=== PATIENT | male | born 1995 | race African-American/Black ===

== ENCOUNTER 2021-08-03 10:16 | Outpatient (REF) | payer SELFPAY ==
[2021-08-03 14:30] LABS: Binax Internal Control QC Valid; Binax Now Covid-19 Ag Positive (Negative)
== END 2021-08-03 10:17 | disposition home or self-care (01) ==
LOC: HO.HMGCLDS 10:16
PROVIDERS: Visit Provider Internal Medicine
DX: Z20.822 Contact with and (suspected) exposure to COVID-19 (principal)
CPT/HCPCS: 36415; C9803

== ENCOUNTER 2021-08-29 08:20 | Outpatient (REF) | payer OTHER, SELFPAY ==
[2021-08-29 11:39] LABS: Hematocrit 48.1 % (42.0-52.0); Hemoglobin 15.4 g/dl (14.0-18.0); Mean Corpuscular Hemoglobin 26.8 pg (27.0-33.0); Mean Corpuscular Volume 83.7 fL (80.0-98.0); Mean Platelet Volume 10.2 fL (9.4-12.4); Platelet Count 220 X10*3/uL (160-400); Red Blood Count 5.75 X10*6/uL (4.60-5.80); Red Cell Distribution Width 13.1 % (11.0-16.0); White Blood Count 4.7 X10*3/uL (4.8-10.8)
[2021-08-29 11:58] LABS: Alanine Aminotransferase 18 U/L (0-40); Albumin Level 4.3 g/dL (3.5-5.0); Alkaline Phosphatase 85 U/L (39-117); Anion Gap 10 (12-20); Aspartate Amino Transferase 20 U/L (5-37); Bilirubin Total 1.3 mg/dL (0.0-1.0); Blood Urea Nitrogen 14 mg/dL (9-16); Calcium 9.8 mg/dL (8.4-10.2); Carbon Dioxide 29 mmol/L (22-29); Chloride 104 mmol/L (96-108); Cholesterol 171 mg/dL; Estimated Glomerular Filt Rate > 60; Glucose Fasting 93 mg/dL (60-99); HDL Cholesterol 40 mg/dL; LDL Cholesterol Calculated 109 mg/dl; Potassium 4.5 mmol/L (3.3-5.1); Sodium 138 mmol/L (135-145); Total Protein 7.6 g/dL (6.5-8.0); Triglycerides 113 mg/dL
== END 2021-08-29 08:21 | disposition home or self-care (01) ==
LOC: HO.HMGCLDS 08:20
PROVIDERS: PCP Internal Medicine; Visit Provider Internal Medicine
DX: Z00.00 Encounter for general adult medical examination without abnormal findings (principal)
CPT/HCPCS: 36415; 80053; 80061; 85027

== ENCOUNTER → 2021-12-01 08:38 | Outpatient (REF) | payer OTHER, SELFPAY ==
--- NOTE | 2021-12-01 08:42 | CA_ITS ---
Transthoracic Echocardiogram Patient (Last, First, Middle): Gustavo Brown, Gender: Male Date of : 1995 Age: 26 Procedure Date: 12/01/2021 Procedure Type: Transthoracic Echocardiogram Location: OP Height: 172.72 cm Weight: 81.65 kg BSA: 1.95 m2 Heart Rate: bpm BP: 125 / 81 mmHg Human Resources Consultant: VH/TO Referring MD: Felicia Rosado MD Regional Sales Consultant: Aki Keane MD Symptoms: R01.1 - Cardiac murmur, unspecified Study Quality: Good ECG Rhythm: Sinus Conclusions: - 1. Low normal LV systolic function with normal diastolic function 2. Normal cardiac valvular Dopplers 3. Normal RV systolic pressure 4. No pericardial effusion Findings Left Ventricle Normal left ventricular cavity size. There is normal left ventricular wall thickness. The left ventricular systolic function is low normal. The visually estimated ejection fraction is between 50-55%. Spectral Doppler is indicative of a normal filling pattern. Right Ventricle Normal right ventricular cavity size and systolic function. Atria Both atria are normal in size. There is no evidence of interatrial shunt. Aortic Valve Normal aortic valve structure and function. There is no aortic valve stenosis. There is no aortic valve regurgitation. Mitral Valve Normal mitral valve structure and function. There is trace mitral valve regurgitation. There is no mitral valve stenosis. Pulmonic Valve The pulmonic valve is likely normal. Tricuspid Valve Normal tricuspid valve structure. There is trace tricuspid valve regurgitation. The right ventricular systolic pressure is normal. The right ventricular systolic pressure is 12 mmHg. Normal right atrial pressure. There is no evidence of pulmonary hypertension. Great Vessels All visible segments of the aorta are normal in size. The pulmonary artery was not well visualized. Venous The inferior vena cava is normal in size and collapses greater than 50% with inspiration. Pericardium/Pleural There is no evidence of pericardial effusion. Prior Study Comparison No prior study available for comparison. Measurements 2D Linear Measurements IVSd: 0.89 0.6-0.9/0.6-1.0 cm LVIDd: 4.98 3.9-5.3/4.2-5.9 cm LVIDd Index: 2.55 2.4-3.2/2.2-3.1 cm/m2 LVIDs: 3.36 2.0-3.6 cm LVPWd: 0.87 0.7-1.1 cm LA Diam: 2.90 2.7-3.8/3.0-4.0 cm LAIDs Index: 1.49 1.5-2.3 cm/m2 LV Mass: 189.84 67-162/88-224 g LV Mass Index: 97.35 43-95/49-115 g/m2 LVOT Diam: 2.10 3.0+(-)1.3 cm 2D Systolic Function EF 4C: 50.70 >55% EF 2C: 51.60 >55% EF BiP: 52.40 >55% Mitral Valve MV Pk E: 0.70 MV PK A: 0.48 MV Decel Time: 217.00 E/A: 1.40 E'Lateral: 14.00 E'Medial: 8.16 E/E' Med: 8.50 E/E' Lat: 5.00 PHT: 64.00 MVA PHT: 3.44 Decel [place]: 4.00 Aortic Valve AoV Pk Luis: 1.22 AoV Mn Luis: 0.88 AoV VTI: 0.27 AoV Pk Grad: 6.00 Aov Mn Grad: 3.00 FINA Cont.VTI: 2.50 LVOT LVOT Pk Luis: 1.07 LVOT Mn Luis: 0.69 LVOT VTI: 0.19 LVOT Pk Grad: 5.00 LVOT Mn Grad: 2.00 LVOT Diam: 2.10 LVOT Area: 3.46 Diastolic Function MV Pk E: 0.70 MV Pk A: 0.48 E/A: 1.40 E'Medial: 8.16 E/E' Med: 8.50 E' Laterial: 14.00 E/E' Lat: 5.00 Right Ventricle TAPSE (mm): 20.40 TVS' Luis: 11.50 Tricuspid Valve TR Pk Luis: 1.49 TR Pk Grad: 9.00 RA Press: 3.00 RVSP: 12.00 Great Vessels Aorta Sinus of Valsalva: 3.24 2.0-3.[address] [place]: 2.47 1.7-3.4 cm Ao Asc: 2.70 2.1-3.4 cm Ao Arch: 2.50 Updated in Other Vendor System with Status of Final Aki Keane MD electronically signed on 12/01/2021 3:01:47 PM with status of Final
== END ==
LOC: HO.CARD 08:38
PROVIDERS: PCP Internal Medicine; Visit Provider Internal Medicine
DX: R01.1 Cardiac murmur, unspecified (principal)
CPT/HCPCS: 93306

== ENCOUNTER → 2022-11-06 11:00 | Outpatient (BNVA) | payer OTHER, SELFPAY | PROVIDERS: PCP Internal Medicine; Visit Provider Nurse Practitioner Family | DX: F41.8 Other specified anxiety disorders (principal) | CPT/HCPCS: 99202 ==

== ENCOUNTER 2023-03-22 12:05 | Outpatient (AMB) | payer OTHER, SELFPAY ==
[2023-03-22 12:20] VITALS: BP 130/90; PULSE 54; TEMP 36.3; O2SAT 99; BMI 27.6
--- NOTE | 2023-03-22 12:20 | AM.OFFWIN_ITS ---
Intake Vital Signs 03/22/23 12:20 Height 5 ft 8 in Weight 181 lb 6 oz BMI 27.6 BP 130/90 H Blood Pressure Location Rt brachial Position Sitting Pulse 54 Pulse Source Pulse Oximeter Temp 97.4 F Temp Source Temporal Artery Scan Pulse Oximetry (%) 99 Oxygen Delivery Method Room Air Intake Visit Reasons: EP STD Testing Intake Note: Pt is here requesting to get STD tested. Patient Tobacco Use Status: Never used Tobacco Allergies No Known Allergies Allergy (Verified 03/22/23 12:37) Medication List - Last Reconciled 03/22/23 by Ed Guerra MD No Known Home Meds Do you need a note to return to daycare/school/sports/work: Yes HPI EP STD Testing HPI Details 27-year-old male presents to the office requesting to be screen for sexually transmitted disease. He had sex outside his marriage. Sex with women. Heterosexual. Did not use protection. No symptoms. 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, MARINE Housing: House Patient Tobacco Use Status: Never used Tobacco e-Cigarette/Vaping Use: Never Used service: Yes Current occupational status: employed Physical Exam Vital Signs: Last Vital Signs Temp 97.4 F 03/22/23 12:20 Pulse 54 03/22/23 12:20 BP 130/90 H 03/22/23 12:20 Pulse Ox 99 03/22/23 12:20 Oxygen Delivery Method Room Air 03/22/23 12:20 BMI result Body Mass Index 27.6 Const General: cooperative, healthy appearing and comfortable Assessment & Plan Assessment & Plan (1) Routine screening for STI (sexually transmitted infection): Code(s): Z11.3 - Encounter for screening for infections with a predominantly sexual mode of transmission Plan: Urine for chlamydia and gonorrhea tested. Blood work for HIV and syphilis ordered. Will call with results. No medications started today. Orders: Orders HIV Ab/Ag Today Z11.3 - Encounter for screening for infections with a predominantly sexual mode of transmission Syphilis Screen Today Z11.3 - Encounter for screening for infections with a predominantly sexual mode of transmission CT NG by PCR Today Z11.3 - Encounter for screening for infections with a predominantly sexual mode of transmission Coding Level of Care Code Est Pt Level 3 (76557) Diagnoses Routine screening for STI (sexually transmitted infection) Z11.3
== END 2023-03-22 13:01 | disposition home or self-care (01) ==
PROVIDERS: PCP Internal Medicine; Visit Provider Internal Medicine
DX: Z11.3 Encounter for screening for infections with a predominantly sexual mode of transmission (principal)
CPT/HCPCS: 99213

== ENCOUNTER 2023-03-22 12:40 | Outpatient (REF) | payer OTHER, SELFPAY ==
[2023-03-23 04:08] LABS: Syphilis Screen Nonreactive (Nonreactive)
[2023-03-23 04:16] LABS: HIV AB/AG Nonreactive (Nonreactive); HIV Num 1 0.06 S/CO (0.00-0.99)
[2023-03-23 04:48] LABS: CT PCR NOT DETECTED (Not Detect.); NG PCR NOT DETECTED (Not Detect.)
== END 2023-03-22 12:41 | disposition home or self-care (01) ==
LOC: HO.HMGCLDS 12:40
PROVIDERS: PCP Internal Medicine; Visit Provider Internal Medicine
DX: Z11.4 Encounter for screening for human immunodeficiency virus [HIV] (principal); Z20.2 Contact with and (suspected) exposure to infections with a predominantly sexual mode of transmission
CPT/HCPCS: 0353U; 36415; 86780; 87389

== ENCOUNTER 2023-07-17 09:07 | Outpatient (AMB) | payer OTHER, SELFPAY ==
[2023-07-17 09:57] VITALS: BP 124/70; PULSE 73; TEMP 36.1; O2SAT 98; BMI 26.9
--- NOTE | 2023-07-17 09:57 | MHC.OFFWIV ---
Intake Vital Signs 07/17/23 09:57 Height 5 ft 8 in Weight 177 lb BMI 26.9 BP 124/70 Blood Pressure Location Lt brachial Position Sitting Pulse 73 Pulse Source Pulse Oximeter Temp 97.0 F Temp Source Temporal Artery Scan Pulse Oximetry (%) 98 Oxygen Delivery Method Room Air Intake Visit Reasons: EST/HIV/STD tesing (lobby) Intake Note: pt is here today for HIV,STD testing for work Patient Tobacco Use Status: Never used Tobacco Allergies No Known Allergies Allergy (Verified 07/17/23 09:58) Do you need a note to return to daycare/school/sports/work: Yes HPI EST/HIV/STD tesing (lobby) HPI Details This is a 27 year old male patient who presents today requesting HIV testing. He reports he needs this for work. He denies any need for any additional STI testing. Denies any known exposure to any STIs. 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, MARINE Housing: House Patient Tobacco Use Status: Never used Tobacco e-Cigarette/Vaping Use: Never Used service: Yes Current occupational status: employed Review of Systems Const All systems reviewed & are unremarkable except as noted in HPI and below Physical Exam Vital Signs: Last Vital Signs Temp 97.0 F 07/17/23 09:57 Pulse 73 07/17/23 09:57 BP 124/70 07/17/23 09:57 Pulse Ox 98 07/17/23 09:57 Oxygen Delivery Method Room Air 07/17/23 09:57 BMI result Body Mass Index 26.9 Const General: cooperative, healthy appearing, comfortable and no acute distress Nutritional Appearance: average body habitus and well nourished Limitations: no limitations Resp Effort & Inspection: normal respiratory effort Skin General skin exam: no rashes or lesions noted Psych Appearance: grossly normal and well kempt Mental Status: mental status grossly normal Assessment & Plan Assessment & Plan (1) Routine screening for STI (sexually transmitted infection): Code(s): Z11.3 - Encounter for screening for infections with a predominantly sexual mode of transmission Plan: HIV ab/ag serology ordered for this patient per his request. He declines any additional testing at this time. He requests note stating he had test done and results are pending. I have written this for him and he will be notified of results once these are available. Orders: Orders HIV Ab/Ag Today Z11.3 - Encounter for screening for infections with a predominantly sexual mode of transmission Coding Level of Care Code Est Pt Level 3 (79201) Diagnoses Routine screening for STI (sexually transmitted infection) Z11.3
== END 2023-07-17 10:42 | disposition home or self-care (01) ==
PROVIDERS: PCP Internal Medicine; Visit Provider Nurse Practitioner Family
DX: Z11.3 Encounter for screening for infections with a predominantly sexual mode of transmission (principal)
CPT/HCPCS: 99213

== ENCOUNTER 2023-07-17 10:42 | Outpatient (REF) | payer OTHER, SELFPAY ==
[2023-07-17 14:01] LABS: HIV AB/AG Nonreactive (Nonreactive); HIV Num 1 0.06 S/CO (0.00-0.99)
== END 2023-07-17 10:43 | disposition home or self-care (01) ==
LOC: HO.HMGCLDS 10:42
PROVIDERS: PCP Internal Medicine; Visit Provider Nurse Practitioner Family
DX: Z11.4 Encounter for screening for human immunodeficiency virus [HIV] (principal)
CPT/HCPCS: 36415; 87389

== ENCOUNTER 2023-07-29 14:24 | Emergency (ER) | payer OTHER, SELFPAY ==
[2023-07-29 14:43] VITALS: BP 145/74; PULSE 76; RESP 16; TEMP 36.6; O2SAT 96; BMI 28.0
--- NOTE | 2023-07-29 14:43 | ED_ITS ---
HPI - Extremity Injury (Upper) General Chief Complaint: Wound/Laceration Stated Complaint: Finger lac Time Seen by Provider: 07/29/23 17:42 Source: patient Mode of arrival: ambulatory Limitations: no limitations History of Present Illness HPI narrative: Patient is a 27 year old assigned male at with no reported medical history presenting to the emergency department today with a left ring finger laceration. Patient states that he was cutting some potatoes when the knife slipped and caught his left ring finger. Patient states that he did remove some excess skin with nail clippers before coming to the department. Patient denies any dizziness, lightheadedness, abdominal pain, nausea, vomiting, fever, chills, blurry vision, double vision, loss of vision, chest pain, difficulty breathing, shortness of breath, back pain, night sweats, pain with urination, increased urinary frequency, increased urinary urgency, blood in his urine or stool, syncope or a near syncopal episode, bowel incontinence, bladder incontinence, bowel retention, bladder retention, or any other complaints at this time. MD complaint: injury to: left and finger (ring) Onset (ago): minute(s) Other injuries: none Place: home Severity: mild Relieving factors: none Exacerbating factors: none Context: laceration Associated symptoms: denies other symptoms Treatments prior to arrival: bandage Related Data Previous Rx's Medication Instructions Recorded cefuroxime axetil 250 mg tablet 250 mg PO BID 7 days #14 tabs 07/29/23 Allergies Allergy/AdvReac Type Severity Reaction Status Date / Time No Known Allergies Allergy Verified 07/29/23 14:43 Review of Systems 2 Constitutional: Constitutional: Reports no additional constitutional complaints, Denies chills, Denies fever(s) and Denies night sweats Eyes: Eyes: Reports no additional eye complaints, Denies blurry vision, Denies change in vision, Denies diplopia, Denies eye discharge, Denies loss of vision and Denies eye pain ENT: Denies dizziness Cardiovascular: Cardiovascular: Reports no additional cardiovascular complaints, Denies chest pain, Denies lightheadedness, Denies Loss of Consciousness and Denies dyspnea Respiratory: Respiratory: Reports no additional respiratory complaints and Denies dyspnea Gastrointestinal: Gastrointestinal: Reports no additional gastrointestinal complaints, Denies abdominal pain, Denies melena, Denies hematochezia, Denies change in bowel habits and Denies change in stool character Genitourinary: Genitourinary: Reports no additional male genitourinary complaints, Denies hematuria, Denies oliguria, Denies difficulty urinating, Denies dysuria, Denies urinary frequency, Denies urinary hesitancy, Denies urinary incontinence and Denies urinary urgency Musculoskeletal: Musculoskeletal: Reports no additional musculoskeletal complaints, Denies numbness and Denies tingling Comments: laceration to left ring finger Neurologic: Denies dizziness, Denies loss of vision, Denies numbness and Denies tingling Psychiatric: Psychiatric: Reports no additional psychiatric complaints Endocrine: Endocrine: Reports no additional endocrine complaints Hematologic/Lymphatic: Hematologic/Lymphatic: Reports no additional hematologic/lymphatic complaints Allergic/Immunologic: Allergic/Immunologic: Reports no additional allergic/immunologic complaints PMFSH Past Medical History Attestation statement: The following information was validated with the patient. 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, MARINE Housing: House Patient Tobacco Use Status: Never used Tobacco e-Cigarette/Vaping Use: Never Used Advance Directives: No Advance Directives Information Provided: No service: Yes Current occupational status: employed Physical Exam 2 Vital Signs: Vital Signs: Last Vital Signs Temp 98.7 F 07/29/23 17:59 Pulse 78 07/29/23 17:59 Resp 16 07/29/23 17:59 BP 123/52 L 07/29/23 17:59 Pulse Ox 97 07/29/23 17:59 O2 Del Method Room Air 07/29/23 17:59 BMI result Body Mass Index 28.0 Const: General: cooperative, no acute distress, alert and awake Nutritional Appearance: well nourished Orientation/consciousness: patient oriented x3 Limitations: no limitations HEENT: Head: Yes normal to inspection and Yes atraumatic Ears: hearing grossly normal bilaterally and external ears normal General nose exam: Normal external nose present, no nasal discharge noted and no epistaxis Face and sinus: Yes normal facial exam, No abrasion and No laceration Mouth: Normal oral and palatal mucosa present, no drooling and no muffled voice Eyes: General: appearance normal, both eyes and all related structures P eriorbital: periorbital findings normal Eyelids: Yes eyelids normal C onjunctivae: conjunctivae normal Pupils: Equal, round and reactive pupils present EOM: EOMs intact bilaterally Neck: Neck: Yes normal visual inspection, Yes full ROM and Yes no lymphadenopathy Chest: Chest palpation & inspection: normal inspection of the chest Resp: Effort & Inspection: normal respiratory effort and able to speak in complete sentences GI: Inspection: Yes normal to inspection Neuro: General: patient oriented x3 and moves all extremities Cranial nerves: Yes Equal, round and reactive pupils present Cognition (Neuro): n ormal cognition Motor exam (neuro): 5/5 motor strength present throughout Sensory Exam: Normal double simultaneous stimulation for sensation C oordination: [id number] test normal Extrem: General: Yes full ROM and Yes capillary refill normal Hand/finger images: 1. 1.5cm flap type laceration to tip Psych: Appearance: grossly normal Mental Status: mental status grossly normal Affect: normal affect Attitude: cooperative Thought process: N ormal thought process present Thought content: Normal thought content present Insight: Good insight present (Psych) Course Course Course Narrative: This is a rapid medical exam. Deferred additional HPI, ROS, PE to primary provider. 27 yo male with no known medical history, right hand dominant here with laceration to left 4th finger from a knife at home. FROM, lac to distal tip which will require closure with sutures. Tetanus UTD Medications Administered Discontinued Medications Generic Name Dose Route Start Last Admin Trade Name Freq PRN Reason Stop Dose Admin Lidocaine HCl 5 ml 07/29/23 17:57 07/29/23 18:11 Lidocaine Hcl 1 % Mpf 5 Ml Vial SUBCUT 07/29/23 17:58 5 ml ONCE ONE Administration Medical Decision Making Medical Decision Making MDM Narrative: Patient is a 27 year old assigned male at with no reported medical history presenting to the emergency department today with a left ring finger laceration. Patient's physical exam was as noted in the physical exam portion of this note. I explained my physical exam findings to the patient. I answered all questions asked by the patient. Patient's laceration was repaired, without incident. Patient was brought up to date on his tetanus status. Given the nature of the patient's injury, will cover with a prophylactic antibiotic. I stressed the importance of the patient performing daily wound checks and dressing changes. I stressed the importance of the patient NOT soaking the affected area. I stressed the importance of the patient having his sutures (2) removed in 7-10 days. I stressed the importance of the patient taking his medication as prescribed. I stressed the importance of the patient following up with his primary care provider. I stressed the importance of the patient returning to the emergency department immediately if his symptoms were to worsen or if he were to develop any numbness, tingling, dizziness, shortness of breath, difficulty breathing, chest pain, blurry vision, loss of vision, nausea, vomiting, abdominal pain, fever, chills, back pain, or any other complaints. Patient verbalized agreement and understanding with this treatment plan and discharge. Differential Diagnosis Differential Diagnoses: The differential diagnosis associated with the presentation includes Left ring finger laceration Admission/Observation Consideration of admission/observation: Escalation of care including admission/observation considered Patient would have been admitted to the hospital had clinical presentation warranted hospital admission. Prescription Management I considered prescription management with: Antibiotic (patient prescribed an antibiotic due to nature of the patient's injury) Procedures Laceration Laceration 1: Site: other (ring finger) Side (If applicable): left Size (cm): 1.5 Description: flap Depth: simple, single layer Local Anesthetic: lidocaine 1% Amount of anesthesia used (mL): 10 Pre-repair: wound explored, irrigated extensively and deep structures intact Skin layer closed with: other (prolene) Size (cm): 5-0 Number of sutures: 2 Technique: simple, interrupted Discharge Plan Discharge Clinical Impression: Laceration Patient Disposition: Home, Self-Care Instructions: Care For Your Stitches (DC), Laceration (DC) Additional Instructions: Have your sutures removed in 7-10 days. Do NOT soak the affected area. Perform daily wound checks and dressing changes. Follow up with your primary care provider. Return to the emergency department immediately if your symptoms worsen or if you develop any dizziness, shortness of breath, difficulty breathing, chest pain, blurry vision, loss of vision, nausea, vomiting, abdominal pain, fever, chills, back pain, or any other complaints. Prescriptions: New cefuroxime axetil 250 mg tablet 250 mg PO BID 7 Days Qty: 14 0RF Referrals: Felicia Rosado MD [Primary Care Provider] - Print Language: Italian
[2023-07-29 17:59] VITALS: BP 123/52; PULSE 78; RESP 16; TEMP 37.1; O2SAT 97
[2023-07-29] MEDS: Lidocaine HCl 1 % MPF 5 ML VIAL SUBCUT (18:11)
[2023-07-29] MEDS: Diphth,Pertus(ACell),Tet Adult 0.5 ML SYRINGE IM (20:08)
[2023-07-29 20:28] VITALS: BP 124/74; PULSE 72; RESP 19; O2SAT 100
--- NOTE | 2023-07-29 20:30 | PC.NURSE ---
Pt ca&ox4, no signs of distress. Pt medicated per mar and tolerated well. Pts significant other at bedside. Plan of care ongoing.
== END 2023-07-29 20:31 | disposition home or self-care (01) ==
PROVIDERS: Emergency Provider Internal Medicine; PCP Internal Medicine
DX: S61.215A Laceration without foreign body of left ring finger without damage to nail, initial encounter (principal); W26.0XXA Contact with knife, initial encounter; Y93.G1 Activity, food preparation and clean up; Y92.9 Unspecified place or not applicable; Y99.9 Unspecified external cause status; Z23 Encounter for immunization
CPT/HCPCS: 12001; 90471; 90715; 99284

== ENCOUNTER 2023-08-07 08:48 | Outpatient (AMB) | payer OTHER, SELFPAY ==
[2023-08-07 09:24] VITALS: BP 112/70; PULSE 73; TEMP 36.2; O2SAT 96; BMI 27.2
--- NOTE | 2023-08-07 09:24 | AM.OFFWIN_ITS ---
Intake Vital Signs 08/07/23 09:24 Height 5 ft 8 in Weight 179 lb BMI 27.2 BP 112/70 Blood Pressure Location Lt brachial Position Sitting Pulse 73 Pulse Source Pulse Oximeter Temp 97.2 F Temp Source Temporal Artery Scan Pulse Oximetry (%) 96 Oxygen Delivery Method Room Air Intake Visit Reasons: EST/stitch removal left ring finger(lobby) Intake Note: pt is here today for stitch removal lft finger Patient Tobacco Use Status: Never used Tobacco Allergies No Known Allergies Allergy (Verified 08/07/23 09:25) Do you need a note to return to daycare/school/sports/work: No HPI HPI Comments History of Present Illness Details Patient presents with for L 4th digit suture removal Seen at [facility] 10 days ago for suture placement Cut himself while cutting potatoes Some sensitivity No pain scale given No bleeding TDAP UTD PFSH Medical History Heart murmur Annual physical exam Family History Mother HTN (hypertension) DM type 2 (diabetes mellitus, type 2) CAD (coronary artery disease) Social History Household Members Other:: , 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 Speaking full sentences. Skin: Warm dry throughout L 4th digit fingertip had [address]. No wound dehiscence, edema or erythema/discharge. + tenderness to palpation of fingertip Eye: EOMI MSK: Full ROM extremities. Neurology: A/O. No aphasia or facial droop. Gait without abnormality Psych: Good mood and affect Assessment & Plan Assessment & Plan (1) Visit for suture removal: Code(s): Z48.02 - Encounter for removal of sutures Plan: Patient seen and evaluated. Verbal consent obtained. L 4th digit on hand had 2 sutures removed with scissors and tweezers without complication Gave verbal care instructions Patient gave verbal understanding and had no additional questions or concerns at time of discharge All questions answered Coding Level of Care Code Est Pt Level 2 (78041) Diagnoses Visit for suture removal Z48.02
== END 2023-08-07 10:35 | disposition home or self-care (01) ==
PROVIDERS: PCP Internal Medicine; Visit Provider Physician Assistant
DX: Z48.02 Encounter for removal of sutures (principal)
CPT/HCPCS: 15853; 99212

== ENCOUNTER 2023-12-02 15:34 | Outpatient (AMB) | payer OTHER, SELFPAY ==
--- NOTE | 2023-12-02 15:39 | A.OFFVIS_ITS ---
Intake Visit Reasons: Vasectomy Consult Intake Note: Patient is present for vasectomy consult Urology Medications: none Blood Thinner: none Children #0 biological Expected Children#0 Concession Attendant Required: No Accompanied by: Self / Same As Patient Allergies No Known Allergies Allergy (Verified 12/02/23 19:14) Medication List - Last Reconciled 12/02/23 by GUILLERMO Shepard No Known Home Meds HPI Comments Details: Gustavo is a pleasant 28-year-old male patient of Dr. Rosado. He presents to the office today for for vasectomy evaluation. Of note, patient was seen over 1 year ago at which time vasectomy was discussed with plans to schedule for vasectomy however patient discusses he has not been able to as he has been busy with work. He discusses having recently returned home and is looking to have procedure. He otherwise offers no other issues or concerns at this time. Vasectomy evaluation The patient presents for vasectomy consultation.? He is currently He has fathered -?no biological children he has three step children The youngest child is - 11 years old? His partner is aware and permissive for a vasectomy. Current form of control is hormones. Current employment is active duty [employer]. The vasectomy may be complicated due to a history of no complicating issues. Patient education has been provided via [employer] video, via printed information, risks of failure, recovery time, bruising and potential pain syndrome have been stressed Discussion today focused on the presence of vasectomy and the risks, benefits and alternatives that are available. Vasectomy as intended as a permanent form of control. Printed information and literature was provided to the patient. Overall there is a one in 2500 failure rate. This can occur at any time after vasectomy. Risks were discussed highlighting hematoma, spermatocele, epididymal congestion, development of sperm antibodies, and development of chronic pain estimated between 1-5%. The procedure was reviewed in detail. Anatomical diagrams of the male genitalia were used to explain the location of the vas deferens. The vas deferens will be transected, the proximal end will be cauterized, a metal clip would be applied to separate the 2 vas deferens ends. It was explained the procedure will be done in the office and takes approximately 10-15 minutes. Less common problems that arise with vasectomy include hematoma, bleeding, allergic reaction to anesthetic, epididymal infection, epididymal congestion, scrotal discomfort, spermatic leak, spermatic granuloma and the possibility of antisperm antibodies. He understands these risks and wishes to proceed. Consent was signed at the office today. He also understands that it takes 12 weeks for sperm to fully clear the system. He will need to provide a semen sample at 12 weeks and if this is not clear a 2nd sample at 16 weeks. Medical clearance to stop using protection will only be provided if he satisfies published criteria for sperm clearance. 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, MARINE Housing: House Patient Tobacco Use Status: Never used Tobacco e-Cigarette/Vaping Use: Never Used service: Yes Current occupational status: employed Review of Systems Const All systems reviewed & are unremarkable except as noted in HPI and below Reports no additional complaints Eyes Reports no additional complaints ENT Reports no additional complaints Card Reports no additional complaints Resp Reports no additional complaints GI Reports no additional complaints Reports as per HPI Musc Reports no additional complaints Neuro Reports no additional complaints Psych Reports no additional complaints Endo Reports no additional complaints Raj/Lymph Reports no additional complaints Aller/Immun Reports no additional complaints Physical Exam Const General: cooperative, healthy appearing, comfortable, no acute distress, well developed, alert and awake Nutritional Appearance: average body habitus Orientation/consciousness: patient oriented x3 Limitations: no limitations HEENT Head: Yes normal to inspection, Yes normocephalic and Yes atraumatic Ears: hearing grossly normal bilaterally Eyes General: appearance normal, both eyes and all related structures Neck Neck: Yes normal visual inspection and Yes trachea midline Chest Chest palpation & inspection: normal inspection of the chest Resp Effort & Inspection: normal respiratory effort and able to speak in complete sentences Cardio Rate: regular rate GI Inspection: Yes normal to inspection General: Yes no CVA tenderness Penis: normal penis Meatus: meatus normal Scrotum: scrotum normal Testes: Testes normal Back/Spine/Pelvis Back: no CVA tenderness Skin General skin exam: no rashes or lesions noted Neuro General: patient oriented x3 Extrem General: Yes normal to inspection Psych Appearance: grossly normal and well kempt Mental Status: mental status grossly normal Speech and movement: Normal speech and movement present and Clear speech present Affect: normal affect Attitude: cooperative Thought process: Normal thought process present Thought content: Normal thought content present Insight: Good insight present (Psych) Judgement: Good judgement present (Psych) Results AMB Urinalysis, Automated UA Leukoctes 0 Tiff/uL Last Edit by [employer] on 12/02/23 15:54 UA Nitrite Negative Last Edit by [employer] on 12/02/23 15:54 UA Urobilinogen 0.2 mg/dL Last Edit by [employer] on 12/02/23 15:54 UA Protein 0 mg/dL Last Edit by [employer] on 12/02/23 15:54 UA pH 6.5 Last Edit by [employer] on 12/02/23 15:54 UA Blood 0 Jerel/uL Last Edit by [employer] on 12/02/23 15:54 UA Specific [place] 1.020 Last Edit by [employer] on 12/02/23 15:54 UA Ketone Negative Last Edit by [employer] on 12/02/23 15:54 UA Bilirubin 0 mg/dL Last Edit by [employer] on 12/02/23 15:54 UA Glucose 0 mg/dL Last Edit by [employer] on 12/02/23 15:54 Results Reviewed Results Reviewed: Laboratory Last Values Urine pH (Auto) 6.5 12/02/23 15:52 Specific [place] (Auto) 1.020 12/02/23 15:52 Urine Protein (Auto) 0 mg/dL 12/02/23 15:52 Glucose (UA)(Auto) 0 mg/dL 12/02/23 15:52 Urine Ketones (Auto) Negative 12/02/23 15:52 Urine Blood (Auto) 0 Jerel/uL 12/02/23 15:52 Urine Nitrite (Auto) Negative 12/02/23 15:52 Urine Bilirubin (Auto) 0 mg/dL 12/02/23 15:52 Urine Urobilinogen (Auto) 0.2 mg/dL 12/02/23 15:52 Leukocyte Esterase (Auto) 0 Tiff/uL 12/02/23 15:52 Assessment & Plan Assessment & Plan (1) Anxiety about health: Code(s): F41.8 - Other specified anxiety disorders Category: Medical (2) Vasectomy evaluation: Code(s): Z30.09 - Encounter for other general counseling and advice on contraception Category: Medical Plan In office urinalysis within normal limits. Discussed at length risks and benefits of in office vasectomy. All questions were answered Discussed in office semen analysis verses fellows analysis. Prescriptions provided; discussed specific instructions with bringing medications to the office prior to procedure. Consent obtained. Will schedule for vasectomy as discussed; or sooner with any issues, concerns, and or questions. Orders: Orders AMB Urinalysis Automated Today Z13.9 - Encounter for screening, unspecified Medications: New diazepam Take medication after arrival at office 2 mg PO BID 1 day PRN 2 tabs 0RF anxiety R45.89 - Other symptoms and signs involving emotional state acetaminophen-codeine 300-30 mg 1 tab PO Q8H 3 days 9 tabs 0RF R45.89 - Other symptoms and signs involving emotional state Patient Instructions: The patient had an opportunity to ask questions regarding the treatment plan. All questions were answered. Physical exam, labs, and imaging were discussed and reviewed in detail. As well as risks, benefits, and discussion of treatment choices. No major barriers to understanding were identified. The patient expressed understanding and agreement with the above treatment plan. The patient was made aware they should contact our office by phone for worsening of their current condition, the appearance of new symptoms, or with any questions or concerns. Compliance is encouraged with any medications and follow up testing that is ordered. It is a privilege to be allowed the opportunity to participate in? your urological care.? Again, if you have any questions or concerns If you have any questions or concerns please do not hesitate to contact me. The office is [phone]. This note is constructed using voice recognition software. While every effort has been made to ensure accuracy histotechnician errors may have been included. Yours sincerely, GUILLERMO Shepard Coding Level of Care Code Est Pt Level 4 (09307) Diagnoses Anxiety about health F41.8 Vasectomy evaluation Z30.09
== END 2023-12-02 16:07 | disposition home or self-care (01) ==
PROVIDERS: PCP Internal Medicine; Visit Provider Nurse Practitioner Family
DX: F41.8 Other specified anxiety disorders (principal); Z30.09 Encounter for other general counseling and advice on contraception; Z13.9 Encounter for screening, unspecified
CPT/HCPCS: 99214

== ENCOUNTER → 2023-12-02 15:34 | Outpatient (BNVA) | payer OTHER, SELFPAY | PROVIDERS: PCP Internal Medicine; Visit Provider Nurse Practitioner Family | DX: Z30.09 Encounter for other general counseling and advice on contraception (principal); F41.8 Other specified anxiety disorders; Z56.82 Military deployment status | CPT/HCPCS: 81003; 99212 ==

== ENCOUNTER 2023-12-09 11:51 | Outpatient (AMB) | payer OTHER, SELFPAY ==
[2023-12-09 12:44] VITALS: BP 118/70; PULSE 75; TEMP 36.6; O2SAT 98
--- NOTE | 2023-12-09 12:44 | MHC.OFFWIV ---
Intake Vital Signs 12/09/23 12:44 Height 5 ft 8 in BP 118/70 Blood Pressure Location Rt brachial Position Sitting Pulse 75 Pulse Source Pulse Oximeter Temp 97.8 F Temp Source Oral Pulse Oximetry (%) 98 Intake Visit Reasons: EP hip pain let side Intake Note: pt is here for hip pain left side, pain started after a run Patient Tobacco Use Status: Never used Tobacco Allergies No Known Allergies Allergy (Verified 12/09/23 12:45) Do you need a note to return to daycare/school/sports/work: Yes HPI HPI Comments History of Present Illness Details Patient presents to the walk-in today for sick visit Complaining of pain to left hip after run Patient is in the , active duty. 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 Answers questions appropriately. Fully engaged in examination. Skin: warm, dry, intact HEENT: Normocephalic. Hearing intact. Cardiac: External chest normal in appearance. Respiratory: No cough, audible wheezing or stridor. Abdomen: without gross distension. MS: No obvious swelling or deformities. No pain with internal/external rotation of the left hip Nontender over midline lumbar vertebrae and lumbar paraspinal muscles Full range of motion left hip Tender to palpation over GTB left side Neurological: Oriented to person, place, time and situation. Thought process intact. No gait abnormalities appreciated. Psychiatric: Appropriate mood and affect. Good judgment and insight. Assessment & Plan Assessment & Plan (1) Greater trochanteric bursitis of left hip: Code(s): M70.62 - Trochanteric bursitis, left hip Plan Diclofenac 50 mg p.o. b.i.d.. Patient advised on cautions for use. Take with food. Do not take with any other nonsteroidal anti-inflammatory medication Lidocaine 5% patches, apply to most painful area on for 12 hours off for 12 hours. Excuse note provided for , no physical activity/exercise for next 2 weeks Follow up with PCP or return here for any new or worsening symptoms Medications: New diclofenac potassium 50 mg PO BID 30 tabs 0RF Yadira Manzo APRN, RAJESH lidocaine 5% leave on most painful area for up to 12 hrs 1 patch topical DAILY 30 ea 0RF Yadira Manzo APRN, RAJESH Refilled diazepam Take medication after arrival at office 2 mg PO BID 1 day PRN 2 tabs 0RF anxiety Ed Guerra MD R45.89 - Other symptoms and signs involving emotional state Coding Level of Care Code Est Pt Level 3 (72458) Diagnoses Greater trochanteric bursitis of left hip M70.62
== END 2023-12-09 13:30 | disposition home or self-care (01) ==
PROVIDERS: PCP Internal Medicine; Visit Provider Registered Nurse Emergency
DX: M70.62 Trochanteric bursitis, left hip (principal)
CPT/HCPCS: 99213

== ENCOUNTER 2024-01-14 14:58 | Outpatient (AMB) | payer OTHER, SELFPAY ==
--- NOTE | 2024-01-14 15:29 | MHC.OFFVIS ---
Intake Visit Reasons: vasectomy Intake Note: Patient is present for Vasectomy Allergies No Known Allergies Allergy (Verified 12/09/23 12:45) HPI Comments Details: Gustavo is a pleasant 28-year-old male patient of Dr. Rosado. He presents to the office today for for vasectomy evaluation. Of note, patient was seen over 1 year ago at which time vasectomy was discussed with plans to schedule for vasectomy however patient discusses he has not been able to as he has been busy with work. He discusses having recently returned home and is looking to have procedure. He otherwise offers no other issues or concerns at this time. Vasectomy procedure The patient presents for vasectomy procedure.? He is currently He has fathered -?no biological children he has three step children The youngest child is - 11 years old? His partner is aware and permissive for a vasectomy. Current form of control is hormones. Current employment is active duty [employer]. 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, MARINE Housing: House Patient Tobacco Use Status: Never used Tobacco e-Cigarette/Vaping Use: Never Used service: Yes Current occupational status: employed Review of Systems Const Denies chills and Denies fever(s) Card Reports no additional complaints and Denies syncope Resp Denies cough GI Denies abdominal pain and Denies heartburn Reports as per HPI and Denies change in libido Neuro Denies syncope Psych Denies change in libido Endo Denies change in libido Physical Exam Const General: cooperative, healthy appearing, comfortable and no acute distress Orientation/consciousness: patient oriented x3 HEENT Face and sinus: Yes normal facial exam Mouth: moist mucous membranes Neck Neck: Yes normal visual inspection, Yes full ROM and Yes trachea midline Chest Chest palpation & inspection: normal inspection of the chest Resp Effort & Inspection: normal respiratory effort, able to speak in complete sentences and no respiratory distress GI Inspection: Yes normal to inspection Back/Spine/Pelvis Cervical Spine: normal cervical lordosis Thoracic/Lumbar Spine: thoracic and lumbar spine normal to inspection Skin General skin exam: no rashes or lesions noted Neuro General: patient oriented x3, gait normal, tone normal and moves all extremities Extrem General: Yes normal to inspection and Yes capillary refill normal Office Procedures Vasectomy Details: Preoperative diagnosis: Anxiety regarding Postoperative diagnosis: Anxiety regarding unplanned Procedure: Bilateral vasectomy Informed consent had been completed. Preoperative and postoperative instructions were provided to the patient. The patient has transportation to home identified at the completion of the procedure. Anti-anxiolytic prescription medication had been taken after consent verification and all questions answered. Tylenol with Codeine pain medication was also provided. The penis was elevated using a rubber band that was attached to the patient's shirt. Both vasa were palpated through the skin using a 3 finger technique and the penoscrotal junction was prepped with Betadine. After Betadine application the left vas was elevated using a 3 finger grasping technique. 1% lidocaine was used to create a subdermal bubble. Further anesthetic was then advanced using the 25-gauge needle along the vasa in a proximal fashion. Approximately 2 minutes were allowed to for local anesthetic uptake. Using the sharp spreading instrument the scrotal skin was spread longitudinally in line with the vasa until the subdermal layer had been divided. The vasa was then elevated from the scrotum using a ring clamp. Care was taken to elevate the superior portion of the vasa by rotating the ring clamp in a caudad direction. The battery powered cautery was used to divide the vasal sheath in a longitudinal direction on the exposed vasa and to strip the vasal sheath from the vasa. A 2nd narrower ring clamp was placed on the exposed vas and used to lift the vas from the vasal sheath. so it grasped the elevated vas. The cautery was used to divide vasal attachments and allow full exposure of a small loop of vasa. The sharp spreading instrument was then used to create a tunnel under the vasa and spread to allow the blood vessels of the vasa to retract from the vasa. A mosquito clamp was placed on the proximal portion of the vas. The battery-powered cautery was used to make a partial division in the proximal vas and then inserted in order to cauterize the proximal end of the vas. This was then cut and allowed to retract into the vasal sheath. The mosquito was then used to twist the vasa 180 degrees creating a fascial interposition. Using a 4-0 chromic suture the fascial interposition was sutured closed. The distal portion of the vas was then cut in order to obtain a segment of vasa. The vasa were allowed to retract back into the scrotum. A small snap was then used to approximate the skin edges and allow hemostasis without placement of a suture. A similar procedure was repeated on the right side. He tolerated the procedure well. Triple antibiotic was applied. A gauze was applied. An ice pack was applied to assist with minimizing swelling. Postoperative instructions were confirmed. He understands the need to continue to use control methods. A semen sample should be brought for inspection under the microscope in 10-12 weeks. CPT 62432 Vasectomy performed by: Wilian Walker Informed consent given: Yes Informed consent signed: Yes Time out checklist: patient, procedure, site marked/identified, positioning of patient, supplies available, allergies confirmed and team agrees on procedure Preoperative sedation: Yes Anesthetic used: other Specimens: vas segments not sent to pathology 57301 - Vasectomy Assessment & Plan Assessment & Plan (1) Anxiety about health: Code(s): F41.8 - Other specified anxiety disorders Category: Medical Plan Twelve week follow-up Patient Instructions: Imaging studies, laboratory and physical exam results were discussed and reviewed in detail. No major barriers to patient understanding were identified. An opportunity to ask questions regarding the treatment plan was provided. All questions were answered. The patient expressed understanding and agreement with the above treatment plan. The patient is aware they should contact our office by phone for worsening of their current condition or the appearance of new urologic symptoms. Compliance is encouraged with any medications and followup testing that is ordered. It is a privilege to participate in the urologic care of your patient. If you have any questions or concerns regarding treatment for the above conditions, or other urologic issues, please do not hesitate to contact me. The office telephone contact is [phone]. This note is constructed using voice recognition software. While every effort has been made to ensure accuracy licensed club manager errors may have been included. Yours sincerely, Dr Wilian Walker MD, [facility] - Urology Providers of Expert, Compassionate Care for the Genitourinary System Coding Level of Care Code Procedure Only Diagnoses Anxiety about health F41.8 CPT Codes Office Procedure - CPT: 25898 - Vasectomy ([id number])
== END 2024-01-14 16:33 | disposition home or self-care (01) ==
PROVIDERS: PCP Internal Medicine; Visit Provider Urology
DX: Z30.2 Encounter for sterilization (principal); F41.8 Other specified anxiety disorders
CPT/HCPCS: 55250

== ENCOUNTER → 2024-01-14 14:58 | Outpatient (BNVA) | payer OTHER, SELFPAY | PROVIDERS: PCP Internal Medicine; Visit Provider Urology | DX: Z30.2 Encounter for sterilization (principal); F41.8 Other specified anxiety disorders | CPT/HCPCS: 55250 ==

== ENCOUNTER 2024-06-09 12:51 | Outpatient (AMB) | payer OTHER, SELFPAY ==
--- NOTE | 2024-06-09 12:52 | MHC.OFFVIS ---
Intake Visit Reasons: [place] Analysis follow up(set) Intake Note: Patient is present for [place] analysis follow up Automotive Sales Professional Required: No Allergies No Known Allergies Allergy (Verified 06/09/24 12:52) HPI Comments Details: Gustavo is a pleasant 28-year-old male patient of Dr. Rosado. He presents to the office today for for vasectomy evaluation. Of note, patient was seen over 1 year ago at which time vasectomy was discussed with plans to schedule for vasectomy however patient discusses he has not been able to as he has been busy with work. He discusses having recently returned home and is looking to have procedure. He otherwise offers no other issues or concerns at this time. Telemedicine Evaluation 15 min Consultation [employer] [facility] [place] Kit - Confirm zero sperm Vasectomy procedure The patient presents for vasectomy procedure.? He is currently He has fathered -?no biological children he has three step children The youngest child is - 11 years old? His partner is aware and permissive for a vasectomy. Current form of control is hormones. Current employment is active duty [employer]. 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, MARINE Housing: House Patient Tobacco Use Status: Never used Tobacco e-Cigarette/Vaping Use: Never Used service: Yes Current occupational status: employed Review of Systems Const All systems reviewed & are unremarkable except as noted in HPI and below Reports no additional complaints Resp Reports no additional complaints GI Reports no additional complaints Reports as per HPI Musc Reports no additional complaints Physical Exam Telemedicine evaluation Appropriate responses Regular breathing rate and rhythm HEENT Head: Yes normal to inspection Ears: hearing grossly normal bilaterally Eyes General: appearance normal, both eyes and all related structures Neck Neck: Yes normal visual inspection Chest Chest palpation & inspection: normal inspection of the chest Resp Effort & Inspection: normal respiratory effort and able to speak in complete sentences Telehealth Telehealth Telehealth Platform: i[employer] Location of provider rendering services: practice address Location of patient: address on file Patient Identification confirmed using: Name, : Yes Telehealth method: video Patient verbally consented to treatment: Yes Patient verbally consented to billing insurance company: Yes Patient informed of any privacy concerns related to visit: Yes Minutes spent on Phone/Video with Pt.: 15 Assessment & Plan Assessment & Plan (1) Anxiety about health: Code(s): F41.8 - Other specified anxiety disorders Category: Medical Plan P.r.n. follow-up Patient Instructions: Imaging studies, laboratory and physical exam results were discussed and reviewed in detail. No major barriers to patient understanding were identified. An opportunity to ask questions regarding the treatment plan was provided. All questions were answered. The patient expressed understanding and agreement with the above treatment plan. The patient is aware they should contact our office by phone for worsening of their current condition or the appearance of new urologic symptoms. Compliance is encouraged with any medications and followup testing that is ordered. It is a privilege to participate in the urologic care of your patient. If you have any questions or concerns regarding treatment for the above conditions, or other urologic issues, please do not hesitate to contact me. The office telephone contact is [phone]. This note is constructed using voice recognition software. While every effort has been made to ensure accuracy location director errors may have been included. Yours sincerely, Dr Wilian Walker MD, [facility] - Urology Providers of Expert, Compassionate Care for the Genitourinary System Coding Level of Care Code Tele Est Pt Level 3 (96895) Diagnoses Anxiety about health F41.8
== END 2024-06-09 13:13 | disposition home or self-care (01) ==
LOC: HO.HUSH 12:52
PROVIDERS: PCP Internal Medicine; Visit Provider Urology
DX: Z30.09 Encounter for other general counseling and advice on contraception (principal); F41.8 Other specified anxiety disorders
CPT/HCPCS: 99213

== ENCOUNTER → 2024-06-09 12:51 | Outpatient (BNVA) | payer OTHER, SELFPAY | PROVIDERS: PCP Internal Medicine; Visit Provider Urology ==